=== PATIENT | male | born 1985 | race Caucasian/White ===

== ENCOUNTER 2021-08-21 15:31 | Emergency (ER) | payer OTHER ==
[~2021-08-21] VITALS: Ht 177.8 cm; Wt 74.8 kg
[~2021-08-21 15:31] MED LIST: Bactrim Ds Tab1 EACH PO; CYCL10 PO; DIPATR PO; ERYT1OIN LEFTEYE; FAMO40 PO; HYDACE10B PO; HYDACE5 PO; IBUP200 PO; Keflex500 MG PO; NAPR500 PO; Norco 10-325 T1 EACH PO; Norco 5-325 Ta1 EACH PO; OMEPRAZOLE MAGN20 MG PO; ONDA4ODT SL; OXYACE5T PO; OXYC10TA19 PO; PANT40 PO; PROM25 PO; PROM25S PR; RANI150; RANI150 PO; RXHYDACE PO
[2021-08-21] MEDS ORDERED: ALPRAZOLAM PO (17:09)
[2021-08-21] MEDS ORDERED: [UNRECOGNIZED DRUG - CODE] PO (17:10)
[2021-08-21] MEDS ORDERED: Naprosyn500 MG PO (17:14)
[2021-08-21] MEDS ORDERED: CYCL10 PO (17:14)
== END 2021-08-21 17:20 | disposition home or self-care (01) ==
LOC: ER 15:31
DX: S06.0X9A Concussion with loss of consciousness of unspecified duration, initial encounter (principal); S16.1XXA Strain of muscle, fascia and tendon at neck level, initial encounter; M25.512 Pain in left shoulder; F41.9 Anxiety disorder, unspecified; I10 Essential (primary) hypertension; F17.210 Nicotine dependence, cigarettes, uncomplicated; V48.5XXA Car driver injured in noncollision transport accident in traffic accident, initial encounter; Z88.5 Allergy status to narcotic agent; Z79.899 Other long term (current) drug therapy
CPT/HCPCS: 70450

== ENCOUNTER 2022-09-15 10:07 | Emergency (ER) | payer OTHER, BC ==
[~2022-09-15] VITALS: Ht 180.3 cm; Wt 77.1 kg
[~2022-09-15 10:07] MED LIST changes: +ALPRAZOLAM PO; +Naprosyn500 MG PO; +[UNRECOGNIZED DRUG - CODE] PO
[2022-09-15 10:14] VITALS: BP 166/99
== END 2022-09-15 11:45 | disposition home or self-care (01) ==
LOC: ER 10:07
DX: S01.25XA Open bite of nose, initial encounter (principal); I10 Essential (primary) hypertension; F17.210 Nicotine dependence, cigarettes, uncomplicated; Z88.5 Allergy status to narcotic agent; W54.0XXA Bitten by dog, initial encounter
CPT/HCPCS: 99283

== ENCOUNTER 2022-12-10 08:01 | Emergency (ER) | payer BC, OTHER ==
[~2022-12-10] VITALS: Ht 533.4 cm; Wt 68.0 kg
[2022-12-10 08:10] VITALS: BP 152/96
[2022-12-10 08:28] LABS: BASOPHILS ABSOLUTE AUTO 0.04 K/mm3 (0.00-0.23); BASOPHILS PERCENT AUTO 1 % (0-2); EOSINOPHILS ABSOLUTE AUTO 0.03 K/mm3 (0.00-0.68); EOSINOPHILS PERCENT AUTO 0 % (0-6); Hematocrit 42.8 % (37.0-53.0); Hemoglobin 14.9 g/dL (13.5-17.5); IMMATURE GRAN ABSOLUTE AUTO 0.02 K/mm3 (0.00-0.10); IMMATURE GRAN PERCENT AUTO 0 % (0-1); LYMPHOCYTES PERCENT AUTO 22 % (21-46); MONOCYTES ABSOLUTE AUTO 0.58 K/mm3 (0.16-1.47); MONOCYTES PERCENT AUTO 7 % (4-13); Mean Corpuscular HGB 31.6 pg (26.0-34.0); Mean Corpuscular HGB Conc 34.8 g/dL (31.5-36.5); Mean Corpuscular Volume 91 fL (80-100); Mean Platelet Volume 10.6 fL (9.1-12.4); NEUTROPHILS ABSOLUTE AUTO 5.43 K/mm3 (1.96-9.15); NEUTROPHILS PERCENT AUTO 70 % (41-73); Platelet Count 312 K/mm3 (150-400); RDW Coefficient Variation 10.9 % (11.7-14.2); RDW Standard Deviation 36.8 fL (35.1-46.3); Red Blood Cell Count 4.72 M/mm3 (4.30-5.90)
[2022-12-10 08:47] LABS: Albumin, Blood 4.5 g/dL (3.4-5.0); Albumin/Globulin Ratio 1.4 (0.8-1.8); Bilirubin, Total 0.8 mg/dL (0.1-1.0); Bun/Creatinine Ratio 20.8 (12.0-20.0); Calcium, Blood 9.3 mg/dL (8.5-10.1); Creatinine, Blood 0.82 mg/dL (0.60-1.20); Globulin, Blood 3.3 g/dL (2.2-4.0); Potassium, Blood 4.1 mmol/L (3.5-5.5); Total Protein, Blood 7.8 g/dL (6.4-8.2)
== END 2022-12-10 09:30 | disposition home or self-care (01) ==
LOC: ER 08:01
PROVIDERS: Student in an Organized Health Care Education/Training Program
DX: R07.9 Chest pain, unspecified (principal); F17.210 Nicotine dependence, cigarettes, uncomplicated; I10 Essential (primary) hypertension; Z88.5 Allergy status to narcotic agent; Z79.899 Other long term (current) drug therapy
CPT/HCPCS: 71046; 80053; 83690; 85025; 93005; 93010; 96374; 99285-25; A9270; J1885

== ENCOUNTER 2023-07-07 06:59 | Day surgery (SDC) | payer BC ==
[~2023-07-07] VITALS: Ht 175.3 cm; Wt 73.2 kg
[2023-07-07] VITALS (15 sets, daily range): BP systolic 105–146; BP diastolic 52–105
[~2023-07-07 06:59] MED LIST changes: +LISI20 PO; +Lactated Ringer's 1,000 ML IV SCH
[2023-07-07] MEDS ORDERED: propofoL 20 ML IV ONE ×2 (08:01→08:17)
[2023-07-07] MEDS ORDERED: Midazolam HCl 1MG / ML 2ML Vial ONE (08:01)
--- NOTE | 2023-07-07 08:08 | NUR ---
07/07/23 0808 Mg [place]ceda HISTORY, CHART, MEDICATIONS AND ALLERGIES REVIEWED BEFORE START OF PROCEDURE. PATIENT CONFIRMS NPO STATUS AND AGREES WITH SCHEDULED PROCEDURE. 3-LEAD EKG REVIEWED WITH PHYSICIAN PRIOR TO START OF PROCEDURE. MONITOR INTACT WITH CONTINUOUS PULSE OXIMETRY,CAPNOGRAPHY, 3-LEAD EKG, INTERMITTENT BP. SUPPLEMENTAL O2 TO BE TITRATED THROUGHOUT PROCEDURE TO MAINTAIN O2 SATURATION ABOVE 90%. PATIENT DETERMINED TO BE ASA APPROPRIATE FOR PROPOFOL SEDATION PRIOR TO START OF PROCEDURE BY DR. HERMAN.
--- NOTE | 2023-07-07 08:32 | NUR ---
PT TO DAY SURGERY STEP DOWN FROM COLONOSCOPY. BEDSIDE REPORT RECEIVED. PT IS AWAKE, ALERT AND ORIENTED; ABLE TO MOVE SELF IN BED. VSS. PT HAS NO COMPLAINTS AT THIS TIME.
--- NOTE | 2023-07-07 08:40 | NUR ---
PT DECLINES PO FLUIDS. Discharge instructions reviewed with patient. Patient verbalizes understanding. Copy given to patient to take home. Patient States Post-Procedure ride home has been arranged.
--- NOTE | 2023-07-07 08:51 | NUR ---
Patient up to Ambulate independently. Gait steady.
--- NOTE | 2023-07-07 08:53 | NUR ---
Discharged via wheelchair to private car for ride home.
[2023-07-07] MEDS ORDERED: Lactated Ringer's 1,000 ML IV ONE (09:07)
== END 2023-07-07 08:54 | disposition home or self-care (01) ==
LOC: ORSCMMR 06:59 → ORD 08:00 → ORSCMMR 08:00
PROVIDERS: Internal Medicine Gastroenterology
PROC: 0DBP8ZX Excision of Rectum, Via Natural or Artificial Opening Endoscopic, Diagnostic (ICD-10-PCS; principal; 2023-07-07 08:00)
DX: K62.5 Hemorrhage of anus and rectum (principal); Z80.0 Family history of malignant neoplasm of digestive organs; K62.1 Rectal polyp; R19.4 Change in bowel habit; I10 Essential (primary) hypertension; F41.9 Anxiety disorder, unspecified; Z79.899 Other long term (current) drug therapy
CPT/HCPCS: 88305; J2250; J2704; J7120